=== PATIENT | male | born 2005 | race Caucasian/White ===

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

== ENCOUNTER 2025-02-22 22:25 | Emergency (ER) | payer OTHER, SELFPAY ==
[2025-02-22 22:24] VITALS: BP 123/88; PULSE 100; RESP 18; TEMP 36.4; O2SAT 100; O2SAT 99
--- NOTE | 2025-02-22 22:28 | ED_ITS ---
HPI - General Adult General Chief complaint: Altered Mental Status Stated complaint: altered mental status History of Present Illness HPI narrative: This is a 19-year-old male presenting for altered mental status. Patient says he is drinking a large amount of alcohol throughout the day. His mom found him collapsed on the ground had trouble waking him up so she called an ambulance. By time he arrived here he was alert oriented. He is answering questions appropriately. He has no complaints. Related Data Allergies Allergy/AdvReac Type Severity Reaction Status Date / Time No Known Allergies Allergy Verified 11/17/24 09:56 [facility] Past Medical History Medical History No significant past medical history Surgical History Surgical History No significant past surgical history Social History Social History Smoking status: Current every day smoker Alcohol intake: current Substance use: current Substance use type: marijuana Exam Narrative: APPEARANCE: No apparent distress. Head: atraumatic. EYES: EOMI, NOSE: Atraumatic NECK: Trachea midline RESPIRATORY: No increased rate of breathing CTAB CARDIOVASCULAR: RRR, ABDOMINAL: Non-distended MUSCULOSKELETAl: No obvious deformities NEURO: Alert. Moving 4/4 extremities SKIN:: Warm, dry. Normal color PSYCHIATRIC: Normal affect Course Vital Signs Vital signs: Vital Signs Temperature 97.5 F L 02/22/25 22:24 Pulse Rate 100 02/22/25 22:24 Respiratory Rate 18 02/22/25 22:24 Blood Pressure 123/88 02/22/25 22:24 Pulse Oximetry 99 02/22/25 22:24 Oxygen Delivery Room Air 02/22/25 22:24 Temperature 97.5 F L 02/22/25 22:24 Pulse Rate 100 02/22/25 22:24 Respiratory Rate 18 02/22/25 22:24 Blood Pressure 123/88 02/22/25 22:24 Pulse Oximetry 100 02/22/25 22:24 Oxygen Delivery Room Air 02/22/25 22:24 Medical Decision Making MDM Narrative Medical decision making narrative: -Course: 19-year-old male presenting with altered mental status. Patient admits to using a large amount of alcohol. Patient is alert and oriented. He is able answer questions appropriately. Called his mother she has come to see him. She is comfortable taking this time. Patient will be discharged with return precautions. -DDX includes but is not limited to: Alcohol intoxication, substance use disorder Vital Signs Vital Signs: Vital Signs Temperature 97.5 F L 02/22/25 22:24 Pulse Rate 100 02/22/25 22:24 Respiratory Rate 18 02/22/25 22:24 Blood Pressure 123/88 02/22/25 22:24 Pulse Oximetry 99 02/22/25 22:24 Oxygen Delivery Room Air 02/22/25 22:24 Temperature 97.5 F L 02/22/25 22:24 Pulse Rate 100 02/22/25 22:24 Respiratory Rate 18 02/22/25 22:24 Blood Pressure 123/88 02/22/25 22:24 Pulse Oximetry 100 02/22/25 22:24 Oxygen Delivery Room Air 02/22/25 22:24 Discharge Plan Discharge Clinical Impression: Alcohol intoxication Patient Disposition: Home Condition: Stable Instructions: Antibiotic Form, Abuse of Alcohol (ED) Additional Instructions: Please do not drink until your 21 years old. Please follow-up with your primary care physician for further management her substance abuse problem. Return to ED if you develop thoughts of harming herself others or any changes in his condition. Patient Language: Botswanan Prescriptions: No Action ciprofloxacin HCl 0.3 % drops See Rx Instructions EACH EYE .COMPLEX Qty: 2.5 0RF Rx Instructions: put 1-2 drps in left eye every 2hr up to 8 times/day x2days; then 4 times/day x5days clindamycin HCl 300 mg capsule 300 mg PO Q8H 10 Days Qty: 30 0RF methylprednisolone [Medrol (Berry)] 4 mg tablets,dose pack See Rx Instructions .ROUTE .COMPLEX Qty: 21 0RF Rx Instructions: for 6 days Follow-up/Referrals: PHYSICIAN,PIE CHEF [Primary Care Provider] -
--- NOTE | 2025-02-22 22:33 | PC.NURSE ---
this rn spoke with Jade, patient mother per edp dr. farfan to get more information. Mother states that patient was very combative to mother. mother states that patient was acting abnormal for his usual self. pt mother states that she is willing to come and take him home.
--- OUTSIDE RECORDS SUMMARY | 2025-02-22 22:41 | XMS_ITS | Clinical Summary ---
Author Organization [facility] Address [address] [place] [address] Care Team Providers Care Technology Solutions Architect Name Role Phone Phillip Cerna MD Primary Care Provider [phone] Source Comments [facility],non-owned Affiliates and Associated Physician Practices is amultiple site organization consisting of ambulatory clinics and hospital sitesin [place], [place], [place] and [place]. This disclosure is being madepursuant to the Care Everywhere program and may not contain all information available regarding this patient. Last updated 18.[employer] [facility] Allergies No known active allergies Medications * Be aware that medications may not be up to date on this document. Alwaysverify current medications with the patient. 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 Gender Identity Not on file Sexual Orientation Not on file Last Filed Vital Signs Vital Sign Reading Time Taken Comments Blood Pressure - - Pulse - - Temperature 36.1 C (97 F) 02/09/2010 1:35 PM CDT Respiratory Rate - - Oxygen Saturation - - Inhaled Oxygen Concentration - - Weight 18.1 kg (40 lb) 02/09/2010 1:35 PM CDT Height 105.4 cm (3' 5.5 ) 02/09/2010 1:35 PM CDT Uzxkjw-xfo-Dbdvrg Percentile 73.27% 02/09/2010 1 :35 PM CDT Growth Chart: [facility] (Boys, 2-2 0 Years) Body Mass Index 16.33 02/09/2010 1:35 PM CDT Body Mass Index Percentile 74.73% 02/09/2010 1:3 5 PM CDT Growth Chart: [facility] (Boys, 2-2 0 Years) Plan of Treatment Health Maintenance Due Date Last Done Comments HIV SCREENING 2020 HPV VACCINE (1 - Male 3-dose series) 2020 MENINGOCOCCAL (Group B) VACC INE SHARED DECISION-MAKING (1 of 2 - Standard) 2021 HEPATITIS C SCREENING 08/01/2023 COVID-19 VACCINE (1 - 2023-2 5 season) 2024 DTAP/TDAP/TD VACCINES (1 - Tdap) 2024 HEPATITIS B VACCINE (1 of 3 - 19+ 3-dose series) 2024 DEPRESSION SCREENING 10/30/2024 INFLUENZA VACCINE (Season Ended) 2025 ZOSTER VACCINE (1 of 2) 2055 HIB VACCINE Aged Out No longer eligi ble based on patient's age to complete this topic MENINGOCOCCAL GROUPS A/C/Y/W VACCINE Aged Out No longer eligible b ased on patient's age to complete this topic PNEUMOCOCCAL VACCINE Aged Out No long er eligible based on patient's age to complete this topic Insurance [facility] Care Teams Technology Solutions Architect Relationship Specialty Start Date End Date Phillip Cerna MD [address] [place] [address] PCP - General Pediatrics 06/28/18
--- NOTE | 2025-02-22 22:51 | PC.NURSE ---
mother at bedside.
== END 2025-02-22 23:14 | disposition home or self-care (01) ==
PROVIDERS: Emergency Provider Emergency Medicine
DX: F10.129 Alcohol abuse with intoxication, unspecified (principal); Y90.9 Presence of alcohol in blood, level not specified; F17.200 Nicotine dependence, unspecified, uncomplicated
CPT/HCPCS: 99284